=== PATIENT | male | born 1975 | race Caucasian/White ===

== ENCOUNTER 2020-04-17 18:33 | Outpatient (REF) | payer OTHER, SELFPAY | END 2020-04-17 18:34 | disposition home or self-care (01) | LOC: HO.LAB 18:33 | PROVIDERS: PCP Internal Medicine; Visit Provider Internal Medicine | DX: Z20.828 Contact with and (suspected) exposure to other viral communicable diseases (principal) | CPT/HCPCS: 36415; 87635 ==

== ENCOUNTER 2023-12-18 06:35 | Outpatient (REF) | payer OTHER, SELFPAY ==
[2023-12-18 10:31] LABS: MANUAL DIFF FLAG NO
[2023-12-18 10:35] LABS: Basophils Absolute Auto 0.1 X10*3/uL (0.0-0.2); Basophils Percent Auto 0.5 % (0-2); Eosinophils Absolute Auto 0.6 X10*3/uL (0.0-0.4); Eosinophils Percent Auto 6.1 % (0-4); Hematocrit 45.5 % (42.0-52.0); Hemoglobin 15.6 g/dl (14.0-18.0); Imm Gran Abs Auto 0.04 X10*3/uL (0.00-0.03); Imm Gran Pct Auto 0.4 % (0.0-0.4); Lymphocytes Absolute Auto 4.3 X10*3/uL (1.2-4.9); Lymphocytes Percent Auto 43.7 % (20-40); Mean Corpuscular HGB Conc 34.3 g/dl (31.0-36.0); Mean Corpuscular Hemoglobin 33.1 pg (27.0-33.0); Mean Corpuscular Volume 96.4 fL (80.0-98.0); Mean Platelet Volume 9.8 fL (9.4-12.4); Monocytes Absolute Auto 0.7 X10*3/uL (0.1-1.2); Monocytes Percent Auto 7.4 % (2-11); Neutrophils Absolute Auto 4.1 x10*3/uL (2.0-8.3); Neutrophils Percent Auto 41.9 % (45-73); Platelet Count 237 X10*3/uL (160-400); Red Blood Count 4.72 X10*6/uL (4.60-5.80); Red Cell Distribution Width 14.6 % (11.0-16.0); White Blood Count 9.7 X10*3/uL (4.8-10.8)
[2023-12-18 11:01] LABS: Alanine Aminotransferase 19 U/L (0-40); Albumin Level 4.1 g/dL (3.5-5.0); Alkaline Phosphatase 60 U/L (39-117); Anion Gap 13 (12-20); Aspartate Amino Transferase 21 U/L (5-37); Bilirubin Total 0.3 mg/dL (0.0-1.0); Blood Urea Nitrogen 17 mg/dL (9-16); Calcium 9.2 mg/dL (8.4-10.2); Carbon Dioxide 25 mmol/L (22-29); Chloride 107 mmol/L (96-108); Cholesterol 126 mg/dL (<200); Estimated Glomerular Filt Rate > 60; Glucose Fasting 95 mg/dL (60-99); HDL Cholesterol 44 mg/dL (>40); LDL Cholesterol Calculated 71 mg/dL (<100); Sodium 141 mmol/L (135-145); Total Protein 6.5 g/dL (6.5-8.0); Triglycerides 57 mg/dL (<150)
[2023-12-18 11:41] LABS: Prostate Specific Antigen 0.69 ng/mL (<0.05-4.0)
[2023-12-19 22:33] LABS: Lyme Abs Screen <0.90 index
== END 2023-12-18 06:36 | disposition home or self-care (01) ==
LOC: HO.HMGCLDS 06:35
PROVIDERS: PCP Internal Medicine; Visit Provider Internal Medicine
DX: R53.83 Other fatigue (principal); E78.5 Hyperlipidemia, unspecified; Z12.5 Encounter for screening for malignant neoplasm of prostate
CPT/HCPCS: 36415; 80053; 80061; 84153; 85025; 86617; 86618

== ENCOUNTER 2024-01-20 10:50 | Outpatient (AMB) | payer OTHER, SELFPAY ==
--- NOTE | 2024-01-20 10:54 | MHC.OFFVIS ---
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 Patient expresses he noticed the bump on the dorsal aspect of his wrist many years ago. He had this cyst aspirated in [place] many years ago and states it returned about a year ago. He states this is limiting his ROM, when he forces his wrist to flex it is followed by pain and discomfort. 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 He has swelling on the lateral aspect of his right elbow that radiates into his right wrist. He expresses severe pain especially when he has to grasp objects. 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 He says he had a ganglion cyst in this location that was aspirated several years ago in [place]. He says this returned ~1 year ago, and he had it aspirated again. 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 He also complains of pain in his right lateral elbow & forearm, which radiates into his wrist. His pain is worse with gripping activities. He says this has been present for several months. 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 Review of Systems Const All systems reviewed & are unremarkable except as noted in HPI and below Physical Exam Const General: cooperative, healthy appearing and no acute distress Orientation/consciousness: patient oriented x3 HEENT Head: Yes normocephalic and Yes atraumatic Eyes EOM: EOMs intact bilaterally Resp Effort & Inspection: normal respiratory effort and able to speak in complete sentences Cardio Jugular venous distension: no JVD Skin General skin exam: turgor normal Rashes: no rashes Neuro General: patient oriented x3 Extrem Other: Evaluation of Right Upper Extremity: The patient is alert, oriented, and in no acute distress Neuro: Median, Ulnar, Radial nerves motor and sensory intact and sensation is normal to the tips of all digits Vascular: Cap refill brisk ROM: He can make a fist and extend all his digits No locking or catching Skin: No lacerations or abrasions. General: No Ecchymosis. No Erythema or evidence of infection. There is a mass on the dorsal aspect of the wrist consistent with a dorsal wrist ganglion. This measures ~1.5cm in diameter. Most tender several centimetres distal to the lateral epicondyle. Mild pain referred to this area with resisted wrist extension Psych Appearance: grossly normal Affect: normal affect Attitude: cooperative Office Procedures Fracture Care Details: No fracture, aspiration of ganglion Fracture Billing Code: Fracture Billing Code Assessment & Plan Assessment & Plan (1) Ganglion cyst of dorsum of right wrist: Code(s): M67.431 - Ganglion, right wrist Category: Medical (2) Right lateral epicondylitis: Code(s): M77.11 - Lateral epicondylitis, right elbow Category: Medical Plan Assessment & Plan: 1. Right dorsal wrist ganglion Measuring ~1.5cm in diameter I educated him about this condition I discussed operative and non-operative treatment options The patient would like to proceed with aspiration Aspiration #1: The risks and benefits of aspiration, including but not limited to risk of damage to blood vessels, nerves, tendons, infection, failure to improve symptoms, increased pain, and possible need for further aspirations or surgical intervention. After obtaining written consent, I sterilely prepped the area over the right dorsal wrist. I then injected subcutaneously with a small amount 1% lidocaine. I then passed an 18 gauge needle into the ganglion and aspirated some clear viscous fluid consistent with a ganglion. Some remaining viscous fluid was then pushed out of the ganglion. The patient tolerated this well and with no complications. He will follow up prn 2. Right lateral epicondylitis I educated him about this condition I ordered OT hand therapy to work on stretching & normalizing function I discussed activity modification, he should limit or avoid any activities which cause him worsening pain Scribed for Jessy Huitron MD by Ramu Wright medical radiation therapist, on 01/20/24 at 11:20 AM, EST. Orders: Orders OT Evaluation and Treatment Today M77.11 - Lateral epicondylitis, right elbow Coding Level of Care Code New Pt Level 3 (94568) Diagnoses Ganglion cyst of dorsum of right wrist M67.431 Right lateral epicondylitis M77.11 CPT Codes Fracture Care - Fracture Billing Code: Fracture Billing Code ([id number])
== END 2024-01-20 11:46 | disposition home or self-care (01) ==
PROVIDERS: PCP Internal Medicine; Visit Provider Orthopaedic Surgery
DX: M67.431 Ganglion, right wrist (principal); M77.11 Lateral epicondylitis, right elbow
CPT/HCPCS: 20612; 99203

== ENCOUNTER → 2024-01-20 10:50 | Outpatient (BNVA) | payer OTHER, SELFPAY | PROVIDERS: PCP Internal Medicine; Visit Provider Orthopaedic Surgery | DX: M67.431 Ganglion, right wrist (principal); M77.11 Lateral epicondylitis, right elbow | CPT/HCPCS: 20612; 99202 ==

== ENCOUNTER 2024-04-22 15:00 | Outpatient (RCR) | payer OTHER, SELFPAY ==
--- NOTE | 2024-02-09 11:30 | MHC.OT.OEV ---
[address] [phone] F: [phone] Occupational Therapy Evaluation Patient Name: José Tanner Diagnosis: (R)Lateral Epicondylitis Date of Onset: 10/13/23 Date of Surgery: Attending Provider: Jessy Huitron Prescribed Treatment: Follow Up Appointment: History of Current Condition: Patient is a 48 year old male with no significant medical history who was referred to skilled OT for (R)lateral epicondylitis as he reports pain in his elbow. He stated he has had this pain for approximately 3 months. Denies numbness/tingling. He also reports pain in the shoulder with movement. 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 He reports his PLOF as (I)ADLs, IADLs. Significant Medical History: (R)shoulder growth was removed years ago (fluid filled cyst) Patient reports back problems Precautions/Contraindications: Patient Goals: To get arm back to normal Hand Dominance: Right Observations: QuickDASH Score: Prior Level of Function and Occupation Self Care, Employment, Leisure: Self employed as a contractor (I)ADLs/IADLs Plays in [employer] league, he exercises Living Situation, Family and/or Social Support: Lives with parents Current Level of Function and Occupation Self Care, Employment, Leisure: min (A)ADLs Sleep: Sleeping through the night, if sleeping on the affected side arm will become painful Driving: (I) Vision: Balance: Pain Assessment Pain Score: 10 Pain Scale Used: Numeric (0 - 10) Pain Location and Description: (R)elbow 0/10 pain at rest pain will shoot up to 9 or 10 with activity Aggravating Factors: opening jars, lifting weighted items Alleviating Factors: Natural ointment Skin and Soft Tissue Assessment Skin and Soft Tissue: Comments: Nerve assessment Ulnar Nerve: Median Nerve: Radial Nerve: Comments: Sensory Assessment Temperature: Light Touch: Proprioception: Vibration: Comments: [place] Monofilament Test- WFL Edema Assessment Upper Extremity: WNL Lower Extremity: Comments: Dexterity Assessment Dexterity: WNL Comments: Functional Dexterity Test= WFL Special Tests Comments: Cozen's (-) Mill's (-) Tinel's (+) Horticultural Specialty Grower Field strength (+) Empty can test (-) AROM(PROM) Strength Cervical Cervical Flexion: Cervical Extension: Cervical Lateral Flexion: Cervical Rotation: Comments: Shoulder Flexion: Extension: Abduction: Internal Rotation: External Rotation: Comments: WFL Flexion: Extension: Abduction: Internal Rotation: External Rotation: Comments: WFL Elbow Flexion: Extension: Pronation: Supination: Comments: limited by pain Flexion: Extension: Pronation: Supination: Comments: WFL Wrist Flexion: Extension: Ulnar Deviation: Radial Deviation: Comments: WFL Flexion: Extension: Ulnar Deviation: Radial Deviation: Comments: WFL Thumb Thumb CMC Flexion: Thumb MCP Flexion: Thumb IP Flexion: Radial Abduction: Palmar Abduction: [place] (Kapand[place] 0-10): Comments: WFL Digits Index MCP: PIP: DIP: Long MCP: PIP: DIP: Ring MCP: PIP: DIP: Small MCP: PIP: DIP: Comments: WFL Gross Grasp: (R)20lbs., (L)100 Lateral Pinch: 16 Two-Point Pinch: 8 Three-Jaw Donald: 12 Comments: Patient Education Primary Language: Dominican General Education Professor Required: No Current Knowledge: Teaching Method: Education Needs Identified on Evaluation: How did patient/family demonstrate learning? Barriers to Learning: Readiness for Learning: Who was educated? Comments: Plan of Care Assessment: Patient is a 48 year old male with c/o pain in (R)elbow who was referred to skilled OT with a diagnosis of (R)epicondylitis. Patient reports 0/10 at rest and 9/10 pain with movement. Patient achieved (R)20lbs. for food service assistant strength which is under for patient's age and gender. Patient's wrist ROM is WFL, shoulder ROM is limited due to pain. Provocative test reveal (-) Ivy, (-) Cozens, (+) Empty Can's. Coordination is WFL per the Functional Dexterity Test, and his sensation is WFL per the [place]. Quick DASH= 50, indicating patient's perception of UE impairment during self care tasks. Based on patient's documented impairments patient's current level of function is min (A) as patient presents with impaired strength, impaired ROM, pain and impaired performance during self care tasks. Due to the documented deficits it is recommended that patient receive skilled OT intervention in order for patient to achieve his PLOF on (I) during self care tasks. Thank you for your referral. STG Duration: 2 weeks Short Term Goals: Patient will report a decrease from 9/10 to 7/10 pain during self care tasks Patient will be (I) with wear schedule of Counter Force Brace Patient will report pain free (R)shoulder AROM for improved functional performance during self care tasks. Patient will increase (R)food service assistant strength to 30lbs. LTG Duration: 4 weeks Lawn Service Manager Goals: Patient will report 0/10 pain during self care tasks Patient will be (I) with HEP Patient will have decreased Quick DASH score by at least 20% indicating improved UE function during self care tasks Frequency and Duration: The patient will be seen 2x a week for 4 weeks Treatment Plan: Therapeutic Exercise Therapeutic Activity Home Exercise Program Splinting Patient Education ADL Training Ultrasound Iontophoresis Paraffin Fluidotherapy MHP Cold Packs Joint Mobilization Soft Tissue Mobilization Kinesiotaping Skilled OT eval and treat Electronically Signed By: Maricruz Richardson OTRobert/L, CLT Reviewed/agree with student documentation: Therapist: Please sign and return to therapist, Thank you for your referral.
--- NOTE | 2024-06-15 08:20 | MHC.OT.DC ---
[address] [phone] F: [phone] Occupational Therapy Discharge Note Patient Name: José Tanner Provider: Jessy Huitron Diagnosis: (R)Lateral Epicondylitis Date of Surgery: Date of Evaluation: 02/06/24 Date of Discharge: Treatments to Date: 6 Cancellations to Date: No Shows to Date: Discharge Status: Discharge Summary: Patient is d/c'd from skilled OT. Electronically Signed By: PURNIMA Le CLT Reviewed/agree with student documentation: Therapist: PURNIMA Le CLT Please Sign and return to therapist, thank you for your referral.
== END 2024-06-15 08:20 | disposition home or self-care (01) ==
LOC: HO.OT 15:00
PROVIDERS: PCP Internal Medicine; Visit Provider Orthopaedic Surgery
DX: M77.11 Lateral epicondylitis, right elbow (principal)
CPT/HCPCS: 97035; 97110; 97140; 97166